=== PATIENT | male | born 1945 | race Caucasian/White ===

== ENCOUNTER 2018-01-25 10:49 | Inpatient (IN) | payer OTHER ==
[~2018-01-25] VITALS: Ht 182.9 cm; Wt 131.5 kg
[2018-01-25] MEDS ORDERED: TARKA ER 2-2401 EACH PO (11:34)
[2018-01-25] MEDS ORDERED: ACTOS30 MG PO (11:35)
[2018-01-25] MEDS ORDERED: PRANDIN PO (11:35)
[2018-01-25] MEDS ORDERED: LIPITOR20 MG PO (11:36)
[2018-01-25] MEDS ORDERED: TAMS0.4C PO (11:36)
[2018-02-02] MEDS ORDERED: INTESTINEX680 M1 PO (14:08)
[2018-02-02] MEDS ORDERED: OXYC1TAB9 PO (14:08)
== END 2018-02-02 15:19 | disposition home or self-care (01) | DRG 330 ==
LOC: SURH 01-30 05:28 → O/R 01-30 05:28 → SURH 01-30 11:01
PROVIDERS: Surgery
PROC: 07TC4ZZ Resection of Pelvis Lymphatic, Percutaneous Endoscopic Approach (ICD-10-PCS; 2018-01-30)
PROC: 0DTG4ZZ Resection of Left Large Intestine, Percutaneous Endoscopic Approach (ICD-10-PCS; principal; 2018-01-30 14:15)
PROC: 4A033R1 Measurement of Arterial Saturation, Peripheral, Percutaneous Approach (ICD-10-PCS; 2018-01-31)
DX: C18.6 Malignant neoplasm of descending colon (principal); J95.89 Other postprocedural complications and disorders of respiratory system, not elsewhere classified; J98.11 Atelectasis; J90 Pleural effusion, not elsewhere classified; R09.02 Hypoxemia

== ENCOUNTER 2024-11-04 09:37 | Emergency (ER) | payer OTHER ==
[~2024-11-04] VITALS: Ht 182.9 cm; Wt 113.4 kg
[~2024-11-04 09:37] MED LIST: ACTOS30 MG PO; INTESTINEX680 M1 PO; LIPITOR20 MG PO; OXYC1TAB9 PO; PRANDIN PO; TAMS0.4C PO; TARKA ER 2-2401 EACH PO
[2024-11-04] MEDS ORDERED: RINGERS SOLUTION,LACTATED 1,000 ML IV STA (10:59)
[2024-11-04] MEDS ORDERED: MORPHINE SULFATE 4 MG/ML VIAL IV STA (11:00)
[2024-11-04] MEDS ORDERED: HYOSCYAMINE SULFATE 0.125 MG TAB.SUBL SL ONE (11:00)
[2024-11-04 11:48] LABS: HEMATOCRIT 44.2 % (39.0-48.0); HEMOGLOBIN 14.7 g/dL (13-16.00); MEAN CELL VOLUME 84.7 fL (80.0-100.00); MEAN CORPUSCULAR HEMOGLOBIN 28.2 pg (27.00-32.0); MEAN CORPUSCULAR HGB CONC 33.3 g/dl (32.0-36.0); PLATELET COUNT 187 K/uL (150-450); RED BLOOD COUNT 5.21 M/uL (4.00-6.00); RED CELL DISTRIBUTION WIDTH 19.1 % (11.5-14.5)
[2024-11-04 12:03] LABS: PH,URINE 5.5 (5.0-8.0); URINE APPEARANCE Clear; URINE BILIRRUBIN Negative (NEGATIVE); URINE BLOOD NHT; URINE COLOR Yellow; URINE KETONE 15 (NEGATIVE); URINE LEUKOCYTE Small; URINE NITRATE Positive; URINE PROTEIN 30 (NEGATIVE); URINE UROBILINOGEN 0.2 E.U./dl
[2024-11-04 12:06] LABS: URINE CAST 3.38 uL (0.0-1.40); URINE EPITHELIAL CELLS 11.7 uL (0.0-38.8); URINE RBC 13.2 uL (0.0-20.8); URINE WBC 201.5 uL (0.0-23.2)
[2024-11-04 12:24] LABS: URINE BACTERIA > 9821.5 uL (0.0-1933); URINE GLUCOSE >=1000 MG/DL (NEGATIVE)
[2024-11-04 13:22] LABS: INR 1.1; PARTIAL THROMBOPLASTIN TIME 26.2 SECONDS (22.0-34.0); PROTHROMBIN TIME 11.9 SECONDS (9.0-11.5)
[2024-11-04 13:40] LABS: ALBUMIN 2.7 gm/dL (3.4-5.0); BILIRUBIN TOTAL 0.52 mg/dL (0.3-1.2); CALCIUM 8.8 mg/dL (8.5-10.1); CREATININE SERUM 0.66 mg/dL (0.70-1.30); GFR 117.03; GLOBULINA 3.4 G/DL (2.4-3.5); POTASSIUM 3.73 mEq/L (3.5-5.1); PROSTATIC SPECIFIC ANTIGEN 2.03 NG/ML (0.010-4.00); TOTAL PROTEIN 6.1 gm/dL (6.4-8.2)
== END 2024-11-04 13:57 | disposition home or self-care (01) ==
LOC: ER 09:38
DX: R10.9 Unspecified abdominal pain (principal); Z88.0 Allergy status to penicillin
CPT/HCPCS: 36415; 74176; 96365; 99284; J2270

== ENCOUNTER 2024-11-11 20:29 | Emergency (ER) | payer OTHER ==
[~2024-11-11] VITALS: Ht 182.9 cm; Wt 113.4 kg
[2024-11-11] MEDS ORDERED: LIPITOR40 MG PO (21:02)
[2024-11-11] MEDS ORDERED: ELIQUIS5 MG PO (21:02)
[2024-11-11] MEDS ORDERED: ARICEPT5 MG (21:02)
[2024-11-11] MEDS ORDERED: NAMENDA1 EACH PO (21:02)
[2024-11-11] MEDS ORDERED: TAMS0.4C (21:02)
[2024-11-11] MEDS ORDERED: ACTOS30 MG PO (21:03)
[2024-11-11] MEDS ORDERED: SYNJARDY XR 121 EACH PO (21:03)
[2024-11-11] MEDS ORDERED: BARIUM SULFATE 450 ML ORAL.SUSP PO ONE (21:44)
[2024-11-11 22:32] LABS: HEMATOCRIT 43.7 % (39.0-48.0); HEMOGLOBIN 14.3 g/dL (13-16.00); MEAN CELL VOLUME 87.2 fL (80.0-100.00); MEAN CORPUSCULAR HEMOGLOBIN 28.5 pg (27.00-32.0); MEAN CORPUSCULAR HGB CONC 32.7 g/dl (32.0-36.0); RED BLOOD COUNT 5.01 M/uL (4.00-6.00); RED CELL DISTRIBUTION WIDTH 19.7 % (11.5-14.5)
[2024-11-11 22:33] LABS: PLATELET COUNT 113 K/uL (150-450)
[2024-11-11 22:48] LABS: BILIRUBIN TOTAL 0.73 mg/dL (0.3-1.2); CALCIUM 9.4 mg/dL (8.5-10.1); CREATININE SERUM 0.86 mg/dL (0.70-1.30); GFR 86.23; GLOBULINA 3.3 G/DL (2.4-3.5); POTASSIUM 3.74 mEq/L (3.5-5.1); TOTAL PROTEIN 6.3 gm/dL (6.4-8.2)
[2024-11-11 23:02] LABS: URINE APPEARANCE Clear; URINE BILIRRUBIN Negative (NEGATIVE); URINE BLOOD Negative; URINE COLOR Yellow; URINE KETONE Trace (NEGATIVE); URINE LEUKOCYTE Negative; URINE NITRATE Negative; URINE PROTEIN Trace (NEGATIVE); URINE UROBILINOGEN 0.2 E.U./dl
[2024-11-11 23:07] LABS: URINE BACTERIA 1483.1 uL (0.0-1933); URINE RBC 19.5 uL (0.0-20.8); URINE WBC 7.7 uL (0.0-23.2)
[2024-11-11 23:10] LABS: URINE CAST 0.14 uL (0.0-1.40); URINE GLUCOSE >=1000 MG/DL (NEGATIVE)
== END 2024-11-12 04:21 | disposition home or self-care (01) ==
LOC: ER 20:30
PROVIDERS: Emergency Medicine
DX: K59.01 Slow transit constipation (principal); K57.30 Diverticulosis of large intestine without perforation or abscess without bleeding; N28.1 Cyst of kidney, acquired; I70.8 Atherosclerosis of other arteries; I10 Essential (primary) hypertension; E11.9 Type 2 diabetes mellitus without complications; Z79.84 Long term (current) use of oral hypoglycemic drugs; Z88.8 Allergy status to other drugs, medicaments and biological substances